=== PATIENT | female | born 1975 | race Caucasian/White ===

== ENCOUNTER 2023-06-24 12:28 | Outpatient (CLI) | payer OTHER, SELFPAY | END 2023-06-24 12:29 | disposition home or self-care (01) | LOC: LKVREF 12:30 | PROVIDERS: PCP Family Medicine; Visit Provider Family Medicine | DX: R53.83 Other fatigue (principal); Z13.29 Encounter for screening for other suspected endocrine disorder | CPT/HCPCS: 84443 ==